=== PATIENT | male | born 1970 | race Caucasian/White ===

== ENCOUNTER 2025-03-10 12:28 | Emergency (ER) | payer OTHER ==
[~2025-03-10] VITALS: Ht 165.1 cm; Wt 77.3 kg
[~2025-03-10 12:28] MED LIST: NO MEDS; PARO10TA89 PO
[2025-03-10 12:35] VITALS: TEMP 99.5
[2025-03-10 16:29] LABS: PLATELET COUNT (AUTO) 279 K/uL (150-450); RED BLOOD CELL COUNT(AUTO) 4.27 MIL/uL (4.50-5.90); RED CELL DISTRIBUTION WIDTH 12.6 % (11.5-14.5); WHITE BLOOD COUNT (AUTO) 15.2 K/uL (4.5-11.0)
[2025-03-10] MEDS: KETOROLAC TROMETHAMINE 30 MG/ML VIAL IVP ONE (16:29)
[2025-03-10] MEDS: LIDOCAINE 1% 10 ML VIAL SQ ONE (16:29)
[2025-03-10] MEDS: HYDROCODONE/ACETAMINOPHEN 5-325 MG TABLET PO ONE (16:29)
[2025-03-10] MEDS: CefTRIAXone 1 GM/DEXTROSE 50 ML IV ONE (16:31)
[2025-03-10 16:40] LABS: CALCIUM, TOTAL 8.6 mg/dL (8.8-10.5); CREATININE 1.10 mg/dL (0.60-1.30); GLOMERULAR FILTR. RATE CALC > 60 mL/min (>60); GLUCOSE,RANDOM 126 mg/dL (70-110); SODIUM SERUM 138 mmol/L (136-145); UREA NITROGEN, BLOOD 16 mg/dL (7-18)
[2025-03-10 18:29] VITALS: BP 145/98; PULSE 75; RESP 18; O2SAT 97
[2025-03-10] MEDS ORDERED: DOXY-354 PO (18:43)
[2025-03-10] MEDS ORDERED: IBUP-1554 PO (18:43)
[2025-03-10] MEDS ORDERED: HYDR-4062 PO (18:43)
[2025-03-10] MEDS ORDERED: CEPH-558 PO (18:43)
== END 2025-03-10 18:59 | disposition home or self-care (01) ==
LOC: EMS 12:28
DX: L02.215 Cutaneous abscess of perineum (principal)
CPT/HCPCS: 46050; 99284; 96365; 96375; 80048; 85025; 36415; J1885; J0696; J3490

== ENCOUNTER 2025-03-11 22:41 | Emergency (ER) | payer OTHER ==
[~2025-03-11] VITALS: Ht 157.5 cm; Wt 77.3 kg
[~2025-03-11 22:41] MED LIST changes: +CEPH-558 PO; +DOXY-354 PO; +HYDR-4062 PO; +IBUP-1554 PO; -NO MEDS; -PARO10TA89 PO
[2025-03-12] MEDS: IBUPROFEN 400 MG TABLET PO ONE (02:50)
[2025-03-12] MEDS: HYDROCODONE/ACETAMINOPHEN 5-325 MG TABLET PO ONE (02:51)
[2025-03-12] MEDS ORDERED: CEPH-558 PO (02:54)
[2025-03-12] MEDS ORDERED: IBUP-1506 PO (02:54)
[2025-03-12] MEDS ORDERED: DOXY-354 PO (02:54)
[2025-03-12] MEDS ORDERED: HYDR-4062 PO (02:54)
[2025-03-12 02:57] VITALS: BP 151/88; PULSE 100; RESP 18; TEMP 99.1; O2SAT 98
== END 2025-03-12 04:02 | disposition home or self-care (01) ==
LOC: EMS 22:42
DX: L02.215 Cutaneous abscess of perineum (principal); F10.90 Alcohol use, unspecified, uncomplicated; Z79.899 Other long term (current) drug therapy; Y90.9 Presence of alcohol in blood, level not specified
CPT/HCPCS: 99283

== ENCOUNTER 2025-03-15 07:35 | Emergency (ER) | payer OTHER ==
[~2025-03-15] VITALS: Ht 165.1 cm; Wt 77.3 kg
[~2025-03-15 07:35] MED LIST changes: +IBUP-1506 PO
[2025-03-15 07:37] VITALS: TEMP 99.5
[2025-03-15 08:57] VITALS: BP 155/91; PULSE 88; RESP 16; O2SAT 97
== END 2025-03-15 08:59 | disposition home or self-care (01) ==
LOC: EMS 07:42
DX: L02.215 Cutaneous abscess of perineum (principal)
CPT/HCPCS: 99281; Z7502